=== PATIENT | male | born 1965 | race Caucasian/White ===

== ENCOUNTER → 2023-11-17 16:06 | Outpatient (BNVA) | payer BC, SELFPAY | PROVIDERS: Family Provider Family Medicine; PCP Family Medicine; Visit Provider Family Medicine | DX: K22.4 Dyskinesia of esophagus (principal); Z13.6 Encounter for screening for cardiovascular disorders; Z00.00 Encounter for general adult medical examination without abnormal findings; F41.9 Anxiety disorder, unspecified; G89.21 Chronic pain due to trauma; M25.50 Pain in unspecified joint; G89.29 Other chronic pain | CPT/HCPCS: 80053; 80061 ==

== ENCOUNTER → 2024-01-10 15:03 | Outpatient (BNVA) | payer BC, SELFPAY | PROVIDERS: Family Provider Family Medicine; PCP Family Medicine; Visit Provider Family Medicine | DX: T78.3XXA Angioneurotic edema, initial encounter (principal) | CPT/HCPCS: 80053; 85025 ==